=== PATIENT | male | born 1960 | race Caucasian/White ===

== ENCOUNTER → 2019-08-13 | Outpatient (CLI) | payer OTHER ==
[2019-08-13 09:09] LABS: CREATININE FOR GFR 1.56 MG/DL (0.70-1.30); GLOMERULAR FILTRATION RATE 49.1 (>56)
== END ==
LOC: M LAB 07:36
PROVIDERS: ATTEND Otolaryngology
DX: H83.02 Labyrinthitis, left ear (principal); H90.3 Sensorineural hearing loss, bilateral

== ENCOUNTER → 2019-08-17 | Outpatient (CLI) | payer OTHER ==
[~2019-08-17] MED LIST: PROHANCE 279.3MG/ML 5ML VIAL (A9576) As Ordered ONE
--- NOTE | 2019-08-17 13:04 | REP ---
MRI brain/IACs: 08/17/2019. Indication: Labyrinthitis. Left sided hearing loss. Comparison: None. Technique: Multiplanar short and long TR sequences of the brain/IACs were performed including gadolinium enhanced images. 10 ml of IV ProHance were administered. Findings: Image quality is degraded by patient motion. There are no areas of restricted diffusion or pathologic gadolinium enhancement. There is no intracranial mass effect or hydrocephalous. Age appropriate elevated T2 signal is noted within the periventricular white matter. Left-sided pansinusitis is present. There is mucosal thickening within the inferior right maxillary sinus. The large intracranial flow voids are present. There are no cerebellopontine/medullary angle or IACs abnormalities. The membranous labyrinth are unremarkable as well. Impression: Motion abandon study. No acute abnormalities of the brain or IACs. Paranasal sinus mucosal disease predominately on the left. Electronically Signed by Peewee Garcia DO 08/17/2019 12:56 P
== END ==
LOC: M RAD 10:09 → EDUNIT# 10:30
PROVIDERS: ATTEND Otolaryngology
DX: H83.02 Labyrinthitis, left ear (principal); H90.3 Sensorineural hearing loss, bilateral
CPT/HCPCS: 70553; A9576

== ENCOUNTER 2019-09-09 22:54 | Emergency (ER) | payer OTHER ==
[~2019-09-09] VITALS: Ht 182.9 cm; Wt 136.4 kg
[2019-09-09] MEDS ORDERED: PIOG1TAB55 PO (23:22)
[2019-09-09] MEDS ORDERED: CARV25TA PO (23:22)
[2019-09-09] MEDS ORDERED: TORS20TA2 PO (23:22)
[2019-09-09] MEDS ORDERED: LEVO175T2 PO (23:22)
[2019-09-09] MEDS ORDERED: CETI10CH PO (23:22)
[2019-09-09] MEDS ORDERED: FLUT50SP33 NARES (23:22)
[2019-09-09] MEDS ORDERED: RIZA10TA2 PO (23:22)
[2019-09-09] MEDS ORDERED: PENI500T PO (23:22)
[2019-09-09] MEDS ORDERED: METF10004 PO (23:22)
[2019-09-09] MEDS ORDERED: CLOP75TA2 PO (23:22)
[2019-09-09] MEDS ORDERED: LOSA100T50 PO (23:22)
[2019-09-09] MEDS ORDERED: ASPI81TA85 PO (23:22)
[2019-09-09] MEDS ORDERED: LANTINJ4 SC (23:22)
[2019-09-09] MEDS ORDERED: JANU100T PO (23:22)
[2019-09-09] MEDS ORDERED: GABA-1171 PO (23:22)
[2019-09-09] MEDS ORDERED: KLOR10TA76 PO (23:22)
[2019-09-09] MEDS ORDERED: PANT40TA3 PO (23:22)
[2019-09-09] MEDS ORDERED: IPRATROPIUM 0.5MG/ALBUTEROL 2.5MG INH SOL UD 3ML (DUONEB)(J7620) NEB ONE (23:30)
[2019-09-10 00:11] LABS: VENOUS BASE EXCESS -3.9 (-2.0-2.0); VENOUS O2 SATURATION 61.5 % (60.0-80.0); VENOUS PARTIAL PRESSURE CO2 49.2 mmHg (38.0-50.0); VENOUS PARTIAL PRESSURE O2 36.9 mmHg (30.0-50.0); VENOUS PH 7.288 UNITS (7.330-7.430); VENOUS STANDARD HCO3 20.5 MEQ/L; VENOUS TOTAL CO2 24.5 MEQ/L (24.0-28.0)
[2019-09-10 00:13] LABS: BASO # 0.1 10^3/uL (0.0-0.2); EOS # 0.5 10^3/uL (0.0-0.5); EOS % 10.4 % (0.0-3.0); HEMATOCRIT 29.3 % (42.0-52.0); HEMOGLOBIN 9.5 g/dl (13.5-17.5); LYMPH # 0.9 10^3/uL (1.5-5.0); LYMPH % 19.1 % (24.0-44.0); MEAN CORPUSCULAR HEMOGLOBIN 31.4 pg (27.0-33.0); MEAN CORPUSCULAR HGB CONC 32.4 g/dl (32.0-36.5); MEAN CORPUSCULAR VOLUME 96.7 fl (80.0-96.0); MONO # 0.3 10^3/uL (0.0-0.8); MONO % 5.3 % (0.0-5.0); NEUTROPHILS # 3.1 10^3/uL (1.5-8.5); NEUTROPHILS % 63.6 % (36.0-66.0); PLATELET COUNT, AUTOMATED 224 10^3/uL (150-450); RED BLOOD COUNT 3.03 10^6/uL (4.30-6.10); WHITE BLOOD COUNT 4.9 10^3/uL (4.0-10.0)
[2019-09-10 00:24] LABS: ALBUMIN 3.7 GM/DL (3.2-5.2); ALT/SGPT 32 U/L (12-78); BILIRUBIN,DIRECT 0.2 MG/DL (0.0-0.2); BILIRUBIN,TOTAL 0.5 MG/DL (0.2-1.0); CK-MB VALUE MASS 4.2 NG/ML (<3.6); CPK CREATINE PHOSPHOKINASE 587 U/L (39-308); MB/CK RELATIVE INDEX 0.72 (< OR =4); NT-PRO BNP 1367 PG/ML (<125); THYROXINE (T4) 8.6 UG/DL (4.5-12.0); TOTAL PROTEIN 7.1 GM/DL (6.4-8.2); TROPONIN I < 0.02 NG/ML (< 0.10)
[2019-09-10 00:31] LABS: INFLUENZA A AMPLIFICATION NEGATIVE (NEGATIVE); INFLUENZA B AMPLIFICATION NEGATIVE (NEGATIVE)
--- NOTE | 2019-09-10 01:18 | REP ---
Clinical: Cough and dyspnea. Comparison: None. Findings: Mediastinum and cardiac silhouette are within normal limits for portable technique. Increased coarsened markings suggests possible chronic reactive airway disease/bronchitis with minimal basilar atelectasis. No focal consolidation. No effusion. No pneumothorax. Skeletal structures intact. Impression: Cannot exclude bronchitis with minimal basilar atelectasis. Electronically Signed by Regan Escamilla MD 09/10/2019 01:10 A
[2019-09-10] MEDS ORDERED: POTASSIUM CHLORIDE 10 MEQ SR TABLET PO ONE (02:15)
[2019-09-10] MEDS ORDERED: CALCIUM CARBONATE 500 MG CHEW U/D PO ONE (02:15)
[2019-09-10] MEDS ORDERED: FUROSEMIDE 40 MG/4 ML VIAL (J1940) IV ONE (02:15)
[2019-09-10 03:02] VITALS: BP 186/77
--- NOTE | 2019-09-10 18:40 | ECGEPIP ---
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
== END 2019-09-10 03:09 | disposition home or self-care (01) ==
LOC: M ED 22:54
DX: I50.9 Heart failure, unspecified (principal); I11.0 Hypertensive heart disease with heart failure; E11.9 Type 2 diabetes mellitus without complications; E03.9 Hypothyroidism, unspecified; G47.33 Obstructive sleep apnea (adult) (pediatric); Z79.899 Other long term (current) drug therapy; Z79.82 Long term (current) use of aspirin; Z79.4 Long term (current) use of insulin; Z79.01 Long term (current) use of anticoagulants
CPT/HCPCS: 71045; 80047; 80076; 82550; 82553; 82803; 83605; 83880; 84436; 84443; 84484; 85025; 87040; 87502; 93005; 93041; 94640; 96374; 99291; J1940

== ENCOUNTER → 2019-12-07 | Outpatient (CLI) | payer OTHER ==
[~2019-12-07] MED LIST changes: +ASPI81TA85 PO; +CARV25TA PO; +CETI10CH PO; +CLOP75TA2 PO; +FLUT50SP33 NARES; +GABA-1171 PO; +JANU100T PO; +KLOR10TA76 PO; +LANTINJ4 SC; +LEVO175T2 PO; +LOSA100T50 PO; +METF10004 PO; +PANT40TA3 PO; +PENI500T PO; +PIOG1TAB55 PO; -PROHANCE 279.3MG/ML 5ML VIAL (A9576) As Ordered ONE; +RIZA10TA2 PO; +TORS20TA2 PO
--- NOTE | 2019-12-11 08:51 | SLEEPCENT ---
DATE OF STUDY: 12/07/2019 ORDERING PROVIDER: JOE Barragan Nocturnal polysomnography was performed for the titration of pressure therapy in this patient with a clinical diagnosis of obstructive sleep apnea syndrome supported by home testing revealing respiratory event index of 48.1. For testing, a ResMed Quattro full face mask of medium size was used. 5 cm of water pressure were applied to the circuit, and the lights were extinguished. 6 hours and 42 minutes of data were reviewed. There were 289 minutes of sleep identified. Sleep latency was normal at 10.5 minutes. Rapid eye movement (REM) latency was short at 24 minutes. Sleep architecture was good. There were a few periods of awake during the study. Overall sleep efficiency was 74.6%. The patient's electrocardiogram showed a sinus rhythm with an average heart rate of 80 beats per minute. Electroencephalogram (EEG) showed normal waveforms for awake and sleep. Respiratory events were fully palliated with continuous positive airway pressure (CPAP) at a pressure of +12. IMPRESSION: Obstructive sleep apnea syndrome (G47.33). RECOMMENDATION: Nightly use of pressure therapy, 12 cm of water.
== END ==
LOC: M SLEEP 20:00
PROVIDERS: ATTEND Nurse Practitioner Family
DX: G47.33 Obstructive sleep apnea (adult) (pediatric) (principal)

== ENCOUNTER 2020-07-30 19:16 | Inpatient (IN) | payer OTHER ==
[~2020-07-30] VITALS: Ht 182.9 cm; Wt 129.4 kg
[~2020-07-30 19:16] MED LIST changes: -ASPI81TA85 PO; +ASPI81TA86 PO; +PANT40TA29 PO; -PANT40TA3 PO
[2020-07-30] MEDS ORDERED: FUROSEMIDE 40MG/4ML VIAL (J1940) IV ONE (19:30)
[2020-07-30] MEDS ORDERED: INSU100I9 (20:02)
[2020-07-30] MEDS ORDERED: VICT18IN2 (20:02)
[2020-07-30] MEDS ORDERED: ISOS1TAB13 (20:02)
[2020-07-30] MEDS ORDERED: CULT10CA (20:02)
[2020-07-30] MEDS ORDERED: FAMO1TAB11 (20:02)
[2020-07-30] MEDS ORDERED: LEVO200T4 (20:02)
[2020-07-30] MEDS ORDERED: ROSU20TA5 (20:02)
[2020-07-30] MEDS ORDERED: DILT180C70 (20:02)
[2020-07-30] MEDS ORDERED: VANC125C3 (20:02)
[2020-07-30] MEDS ORDERED: D31000CA4 (20:02)
[2020-07-30 20:03] LABS: VENOUS BASE EXCESS -2.5 (-2.0-2.0); VENOUS HCO3 23.4 MEQ/L (23.0-27.0); VENOUS O2 SATURATION 91.3 % (60.0-80.0); VENOUS PARTIAL PRESSURE CO2 45.1 mmHg (38.0-50.0); VENOUS PARTIAL PRESSURE O2 65.9 mmHg (30.0-50.0); VENOUS PH 7.333 UNITS (7.330-7.430); VENOUS STANDARD HCO3 22.2 MEQ/L; VENOUS TOTAL CO2 24.8 MEQ/L (24.0-28.0)
[2020-07-30 20:21] LABS: BASO # 0.1 10^3/uL (0.0-0.2); BASO % 0.9 % (0.0-1.0); EOS # 0.6 10^3/uL (0.0-0.5); HEMATOCRIT 32.9 % (42.0-52.0); HEMOGLOBIN 10.9 g/dl (13.5-17.5); LYMPH % 12.3 % (24.0-44.0); MEAN CORPUSCULAR HGB CONC 33.1 g/dl (32.0-36.5); MEAN CORPUSCULAR VOLUME 93.5 fl (80.0-96.0); MONO # 0.5 10^3/uL (0.0-0.8); MONO % 5.5 % (0.0-5.0); NEUTROPHILS % 73.6 % (36.0-66.0); PLATELET COUNT, AUTOMATED 296 10^3/uL (150-450); RED BLOOD COUNT 3.52 10^6/uL (4.30-6.10); WHITE BLOOD COUNT 8.2 10^3/uL (4.0-10.0)
[2020-07-30 20:34] LABS: INR 0.91; PROTHROMBIN TIME 12.4 SECONDS (12.5-14.3)
[2020-07-30 20:44] LABS: ALBUMIN 2.9 GM/DL (3.2-5.2); BILIRUBIN,DIRECT 0.2 MG/DL (0.0-0.2); BILIRUBIN,TOTAL 0.6 MG/DL (0.2-1.0); CALCIUM LEVEL 8.7 MG/DL (8.5-10.1); CK-MB VALUE MASS 7.2 NG/ML (<3.6); CREATININE FOR GFR 1.82 MG/DL (0.70-1.30); GLOMERULAR FILTRATION RATE 40.9 (>56); MB/CK RELATIVE INDEX 0.96 (< OR =4); POTASSIUM SERUM 4.4 MEQ/L (3.5-5.1); TOTAL PROTEIN 6.7 GM/DL (6.4-8.2); TROPONIN I 0.02 NG/ML (< 0.10)
[2020-07-30] MEDS ORDERED: HumuLIN R (REGULAR) INSULIN (NovoLIN R) **100U/ML** PER UNIT IV ONE (21:15)
[2020-07-30] MEDS ORDERED: methylPREDNISolone 125MG 2ML VIAL IV STA (21:47)
--- NOTE | 2020-07-30 21:55 | HPEPDOC ---
[facility] Medical History & Physical Date of Admission Jul 30, 2020 Date of Service: Jul 30, 2020 Primary Care Physician: Jacey Alvares MD [facility] Attending Physician: RENITA AYOUB MD History and Physical TIME OF SERVICE: 11:50 PM CHIEF COMPLAINT: Shortness of breath HISTORY OF PRESENT ILLNESS: The patient is a poor historian the majority of the history was obtained from . This 60 yr old gentleman suddenly developed shortness of breath while shopping with his , therefore, she decided to bring him to the hospital for evaluation. Upon arrival, the patient added that he also had chest pain and was noted to have O2 sats that were 88% on room air. Per Dr. Woo the patient's torsemide, had recently been discontinued; in light of this information and the elevated BNP, he ordered Lasix and started the patient on BiPAP for cardiogenic pulmonary edema. At the time of my evaluation, the patient reported that his shortness of breath that improved with BIPAP, and added that he was currently on medications for C. difficile and had recently completed a course of antibiotics for pneumonia. REVIEW OF SYSTEMS: 12 point review of systems negative except as listed in HPI PAST MEDICAL/ SURGICAL HISTORY: COPD/asthma Unspecified type of CHF CAD with placement of 3 stents CKD 3 AMARJIT on CPAP 12 cm water Diabetes GERD Hypothyroidism Dementia Impaired hearing. Chronic knee pain SOCIAL HISTORY: Is a former smoker FAMILY HISTORY: n/a ALLERGIES: Please see below. HOME MEDICATIONS: Please see below. PHYSICAL EXAMINATION: Vital Signs Date Time Temp Pulse Resp B/P (MAP) Pulse Ox O2 Delivery O2 Flow Rate FiO2 07/30/20 19:16 98.2 98 223/100 (141) 89 Room Air 07/30/20 19:30 4.0 88 07/31/20 01:55 18 GEN: obese/ well developed/ NAD HEENT: BIPAP mask in place CVS: RRR/NMRG/ radial pulses intact / BLE edema LUNGS: able to speak full sentences without stopping to take a breath / breath sounds are diminished ABDOMEN: Contour ( obese ) MSK/EXTREMITIES: range of motion intact in all 4 extremities NEURO: CN 2-12 are grossly intact / speech is not dysarthric PSYCH: alert and oriented to person place and time/ able to understand and follow all commands LABORATORY DATA: 07/30/20 19:16 12/16/20 19:16: Immature Granulocyte % (Auto) 0.7, Neutrophils (%) (Auto) 73.6H, Lymphocytes (%) (Auto) 12.3L, Monocytes (%) (Auto) 5.5H, Eosinophils (%) (Auto) 7.0H, Basophils (%) (Auto) 0.9, Neutrophils # (Auto) 6.0, Lymphocytes # (Auto) 1.0L, Monocytes # (Auto) 0.5, Eosinophils # (Auto) 0.6H, Basophils # (Auto) 0.1, Nucleated Red Blood Cells % (auto) 0.0, Prothrombin Time 12.4, Prothromb Time International Ratio 0.91, Blood Gas Bicarbonate Standard 22.2, Venous Blood pH 7.333, Venous Blood Partial Pressure CO2 45.1, Venous Blood Partial Pressure O2 65.9H, Venous Blood Total Carbon Dioxide 24.8, Venous Blood HCO3 23.4, Venous Blood Oxygen Saturation 91.3H, Venous Blood Base Excess -2.5L, Anion Gap 7L, Glomerular Filtration Rate 40.9L, Calcium Level 8.7, Total Bilirubin 0.6, Direct Bilirubin 0.2, Aspartate Amino Transf (AST/SGOT) 26, Alanine Aminotransferase (ALT/SGPT) 20, Alkaline Phosphatase 102, Total Creatine Kinase 749H, Creatine Kinase MB 7.2H, Creatine Kinase MB Relative Index 0.96, Troponin I 0.02, FL-Duu-A-Type Natriuretic Peptide 2416H, Total Protein 6.7, Albumin 2.9L, Albumin/Globulin Ratio 0.8 07/30/20 21:47: Bedside Glucose (Misc Panel) 452H IMAGING: Chest xray "IMPRESSION:Stable cardiomegaly, chronic vascular congestion and increased interstitial markings." MICROBIOLOGY: Please see below. ASSESSMENT: Mr. Kingsley is a 60 yr old M with a history of COPD/asthma, unspecified, CHF, CAD, CK D3, AMARJIT, DM, GERD, hypothyroidism, dementia, and impaired hearing who will be admitted for evaluation of dyspnea likely due to fluid overload. PLAN: 1. Dyspnea Likely due to acute CHF His initial O2 sats were 88% on room air. The chest x-ray showed chronic vascular congestion while the ABG and troponin were unremarkable. Because he was recently hospitalized and the dyspnea was sudden in onset we should also r/o PE; the Wells Score for PE = 1 point = low risk Plan: admit to PCU / treat fluid overload / check d-dimer 2. Acute unspecified type of CHF Plan: f/u Is and Os, daily weights/ restrict salt to 2G and fluids to 2L / c/w Lasix 40mg IV daily / f/u Echo / c/w carvediolol, hydralazine, isosorbid dinitrate & losartan 3. Mild Acute COPD/Asthma Plan: will give solumedrol and nebs tonight and resume home inhalers in the morning 4. Chest pain Plan: telemetry / trend trops 5. C diff Plan: contact precautions / c/w Vancomycin 6. Uncontrolled IDDM Plan: will give lispro now / diabetic diet / f/u accuchecks & A1C / hypoglycemia protocol / sliding scale insulin / Levemir 35 units QHS/ gabapentin 7. Uncontrolled HTN Plan: resume carvedilol, diltiazem, hydralazine, isosorbide dinitrate, losartan / IV Lasix 8.CAD Plan: clopidogrel, rosuvastatin 9. NN Anemia Plan: c/w oral iron 10. Elevated CK / Rhabdo ? Plan: trend CK / will not give IVF to avoid worsening fluid overload 11. 7.CKD3 Cr slightly above baseline Plan: f/u repeat BMP 12 .Hypothyroidism Plan: levothyroxine 13. AMARJIT Plan: CPAP 12cm H2O 14. Obesity w BMI of 36.7 complicates care DVT PROPHYLAXIS: heparin DISPOSITION: home after more than 2 midnight's stay LATE ENTRY # Elevated d-dimer Plan: start Heparin drip pending VQ Scan Home Medications Scheduled Aspirin (Aspirin EC) 81 Mg Tablet.dr, 81 MG PO DAILY Carvedilol (Carvedilol) 25 Mg Tablet, 25 MG PO BID Cholestyramine/Aspartame (Cholestyramine Light Packet) 4 Gm Powd.pack, 4 GM PO DAILY Clopidogrel Bisulfate (Clopidogrel) 75 Mg Tablet, 75 MG PO DAILY Famotidine (Famotidine) 20 Mg Tablet, 20 MG PO DAILY Ferrous Gluconate (Iron) 236 Mg Tablet, 2 TAB PO DAILY Fluticasone Propionate (Fluticasone Propionate) 15.8 Ml [place].susp, 2 SPRAYS NA DAILY Gabapentin (Gabapentin) 100 Mg Capsule, 200 MG PO TID Hydralazine HCl (Hydralazine HCl) 25 Mg Tablet, 25 MG PO DAILY Hydrocortisone (Anusol-Hc) 2.5% Crm.pe.jana, 1 DOSE PA BID Insulin Glargine,Hum.rec.anlog (Lantus Solostar) 100 Unit/1 Ml Insuln.pen, 35 UNITS SC QHS Isosorbide Dinitrate (Isosorbide Dinitrate) 30 Mg Tablet, 30 MG PO DAILY Lactobacillus Rhamnosus GG (PROFICIO) 1 Each Cap.sprink, 1 CAP PO DAILY Levothyroxine Sodium (Synthroid) 200 Mcg Tablet, 200 MCG PO DAILY Liraglutide (Victoza 2-Fred) 0.6 Mg/0.1 Ml Pen.injctr, 1.8 MG SC DAILY Losartan Potassium (Losartan Potassium) 100 Mg Tablet, 100 MG PO DAILY Potassium Chloride (Potassium Chloride) 10 Meq Tab.er.prt, 10 MEQ PO DAILY Rosuvastatin Calcium (Crestor) 20 Mg Tablet, 20 MG PO QHS Vancomycin Hcl (Vancomycin HCl) 125 Mg Capsule, 125 MG PO Q6H dilTIAZem HCl (Diltiazem 24Hr Cd) 180 Mg Cap.er.24h, 180 MG PO DAILY Scheduled PRN Albuterol Sulfate (Proair Hfa) 8.5 Gm Hfa.aer.ad, 2 PUFF INH QID PRN for SHORTNESS OF BREATH Cetirizine HCl (Cetirizine HCl) 10 Mg Tablet, 10 MG PO DAILY PRN for ALLERGY SYMPTOMS Rizatriptan Benzoate (Maxalt Mold Swabber) 10 Mg Tab.rapdis, 10 MG PO BID PRN for MIGRAINE Allergies Coded Allergies: dulaglutide (Verified Adverse Reaction, Unknown, DIARRHEA, 07/30/20) A-FIB/CHADSVASC A-FIB History Current/History of A-Fib/PAF?: No Current PO Anticoag Therapy: No RENITA AYOUB MD Jul 30, 2020 21:55
[2020-07-30] MEDS ORDERED: GLUCAGON INJ 1MG VIAL SC PRN (22:00)
[2020-07-30] MEDS ORDERED: DEXTROSE 50% 50 ML SYRINGE IV PRN (22:00)
[2020-07-30] MEDS ORDERED: GLUCOSE 4GM CHEW TABLET PO PRN (22:00)
[2020-07-30] MEDS ORDERED: MOM 30ML SUSPENSION UDC PO PRN (22:00)
[2020-07-30] MEDS ORDERED: MAALOX 30 ML SUSP *UDC PO PRN (22:00)
[2020-07-30] MEDS ORDERED: ALBUTEROL 90 MCG/ACT 8GM HFA INHALER INH PRN (22:00)
[2020-07-30 22:09] LABS: D-DIMER QUANT 1436.56 ng/ml (<500)
[2020-07-30 22:25] LABS: HEMOGLOBIN A1c 13.2 %
[2020-07-30 22:35] LABS: RSV AMPLIFICATION NEGATIVE (NEGATIVE)
--- NOTE | 2020-07-30 23:07 | REPVR ---
PROCEDURE INFORMATION: Exam: XR Chest, 1 View Exam date and time: 07/30/2020 7:27 PM Age: 60 years old Clinical indication: Other: Dyspnea; Additional info: Dyspnea/cough TECHNIQUE: Imaging protocol: XR of the chest Views: 1 view. COMPARISON: CR PORTABLE CHEST X-RAY 09/09/2019 11:21 PM FINDINGS: Lungs: Unremarkable. No consolidation. Pleural space: Unremarkable. No pleural effusion. No pneumothorax. Heart/Mediastinum: Unremarkable. No cardiomegaly. Bones/joints: Unremarkable. IMPRESSION: No acute infiltrates. Electronically signed by: Nathaniel Pedroza On 07/30/2020 23:07:28 PM
[2020-07-30] MEDS ORDERED: ANUS2.5C2 PR (23:52)
[2020-07-30] MEDS ORDERED: CLOP75TA2 PO (23:52)
[2020-07-30] MEDS ORDERED: ISOS30TAB PO (23:52)
[2020-07-30] MEDS ORDERED: PROAAER10 INH (23:52)
[2020-07-30] MEDS ORDERED: VANC125C3 PO (23:52)
[2020-07-30] MEDS ORDERED: CETI10TA PO (23:52)
[2020-07-30] MEDS ORDERED: CULT10CA PO (23:52)
[2020-07-30] MEDS ORDERED: MAXA10TA15 PO (23:52)
[2020-07-30] MEDS ORDERED: LANTINJ4 SC (23:52)
[2020-07-30] MEDS ORDERED: CRES20TA2 PO (23:52)
[2020-07-30] MEDS ORDERED: FAMO20TA PO (23:52)
[2020-07-30] MEDS ORDERED: LEVO2TA PO (23:52)
[2020-07-30] MEDS ORDERED: POTA10TA67 PO (23:52)
[2020-07-30] MEDS ORDERED: IRON27TA2 PO (23:52)
[2020-07-30] MEDS ORDERED: GABA-1171 PO (23:52)
[2020-07-30] MEDS ORDERED: HYDR-3910 PO (23:52)
[2020-07-30] MEDS ORDERED: LOSA100T50 PO (23:52)
[2020-07-30] MEDS ORDERED: VICT18IN SC (23:52)
[2020-07-30] MEDS ORDERED: DILT180C70 PO (23:52)
[2020-07-30] MEDS ORDERED: ASPI-161 PO (23:52)
[2020-07-30] MEDS ORDERED: FLUT15.820 (23:52)
[2020-07-30] MEDS ORDERED: CARV25TA PO (23:52)
[2020-07-30] MEDS ORDERED: CHOL4POW2 PO (23:52)
[2020-07-31] VITALS (10 sets, daily range): BP systolic 130–170; BP diastolic 70–90; O2SAT 96–100
[2020-07-31] MEDS: HumaLOG INSULIN (NovoLOG) PER UNIT SC SCH ×4 (00:41→17:48)
[2020-07-31] MEDS ORDERED: IPRATROPIUM 0.5MG/ALBUTEROL 2.5MG INH SOL UD 3ML (DUONEB) NEB SCH (02:00)
[2020-07-31] MEDS ORDERED: HEPARIN DRIP 25,000 UNITS in IV 1 EA IV SCH (05:30)
[2020-07-31] MEDS ORDERED: HEPARIN SOD (PORCINE) 5000UNITS/ML 1ML VIAL/SYRINGE IV ONE (05:30)
[2020-07-31] MEDS ORDERED: HEPARIN SOD (PORCINE) 5000UNITS/ML 1ML VIAL/SYRINGE IV PRN (05:30)
[2020-07-31] MEDS ORDERED: RIZATRIPTAN MLT 10 MG TAB PO PRN (05:30)
[2020-07-31] MEDS ORDERED: HumaLOG INSULIN (NovoLOG) PER UNIT SC ONE ×2 (05:30→20:45)
[2020-07-31] MEDS ORDERED: ALBUTEROL 90 MCG/ACT 8GM HFA INHALER INH PRN (05:30)
[2020-07-31] MEDS ORDERED: HEPARIN SOD (PORCINE) 5000UNITS/ML 1ML VIAL/SYRINGE SC SCH (06:00)
[2020-07-31 06:03] LABS: HEMATOCRIT 31.1 % (42.0-52.0); MEAN CORPUSCULAR HEMOGLOBIN 30.1 pg (27.0-33.0); MEAN CORPUSCULAR HGB CONC 32.2 g/dl (32.0-36.5); MEAN CORPUSCULAR VOLUME 93.7 fl (80.0-96.0); PLATELET COUNT, AUTOMATED 263 10^3/uL (150-450); RED BLOOD COUNT 3.32 10^6/uL (4.30-6.10); WHITE BLOOD COUNT 7.7 10^3/uL (4.0-10.0)
[2020-07-31] MEDS: LEVEMIR (INSULIN DETEMIR) 1 UNITS/0.01ML SC SCH ×2 (06:07→20:56)
[2020-07-31] MEDS: ACETAMINOPHEN TAB 650MG DOSE (2X325MG) PO PRN (06:09)
[2020-07-31] MEDS: LEVOTHYROXINE 100MCG TABLET (0.1MG) PO SCH (06:27)
[2020-07-31] MEDS: ROSUVASTATIN 10 MG TAB (CRESTOR) PO SCH ×2 (06:27→20:56)
[2020-07-31 06:45] LABS: BLOOD UREA NITROGEN 22 MG/DL (7-18); CARBON DIOXIDE LEVEL 27 MEQ/L (21-32); CHLORIDE LEVEL 105 MEQ/L (98-107); CPK CREATINE PHOSPHOKINASE 611 U/L (39-308); CREATININE FOR GFR 1.86 MG/DL (0.70-1.30); GLOMERULAR FILTRATION RATE 39.9 (>56); GLUCOSE, FASTING 397 MG/DL (70-100); SODIUM LEVEL 138 MEQ/L (136-145); TROPONIN I < 0.02 NG/ML (< 0.10)
[2020-07-31] MEDS: VANCOMYCIN ORAL SOL 250MG/5ML ORAL SYRINGE PO SCH ×3 (06:47→17:49)
[2020-07-31] MEDS ORDERED: predniSONE 20 MG TAB PO SCH (09:00)
[2020-07-31] MEDS ORDERED: LEVEMIR (INSULIN DETEMIR) 1 UNITS/0.01ML SC SCH (09:00)
[2020-07-31] MEDS ORDERED: LOSARTAN 50MG TABLET PO SCH (09:00)
[2020-07-31] MEDS ORDERED: FUROSEMIDE 40MG/4ML VIAL (J1940) IV SCH (09:00)
[2020-07-31] MEDS: CARVedilol 12.5 MG TAB PO SCH ×2 (09:11→20:58)
[2020-07-31] MEDS: CLOPIDOGREL 75 MG TAB PO SCH (09:12)
[2020-07-31] MEDS: ISOSORBIDE DIN. (ISORDIL) 30 MG TAB PO SCH (09:12)
[2020-07-31] MEDS: FAMOTIDINE 20 MG TAB PO SCH (09:12)
[2020-07-31] MEDS: ASPIRIN 81 MG ENTERIC TAB PO SCH (09:12)
[2020-07-31] MEDS: PANTOPRAZOLE 40MG TAB (PROTONIX) PO SCH (09:12)
[2020-07-31] MEDS: GABAPENTIN 100 MG CAP PO SCH ×3 (09:12→20:57)
[2020-07-31] MEDS: POTASSIUM CHLORIDE 10 MEQ SR TABLET PO SCH (09:13)
[2020-07-31] MEDS: diltiaZEM **CD** 180 MG CAP PO SCH (09:13)
[2020-07-31] MEDS: **hydrALAZINE HCL** 25 MG TAB PO SCH (09:13)
--- NOTE | 2020-07-31 13:04 | REP ---
INDICATION: dyspnea elevated d-dimer. COMPARISON: Comparison is made with the previous day's portable chest x-ray.. TECHNIQUE: 1.0 mCi of technetium 99m DTPA aerosol is utilized for the ventilation study and is followed by a 5.5 mCi dose of intravenous technetium 99m MAA for the perfusion study. A sequence of 8 planar images are acquired for each portion of the study. FINDINGS: There is a mild central bronchial deposition of inspired ventilatory tracer. There is fairly homogeneous distribution of perfusion and ventilation uptake in the parenchyma. No ventilation perfusion mismatch is seen in either lung. IMPRESSION: Negative perfusion scan. No evidence of pulmonary embolus. <Electronically signed by Darnell Bradley > 07/31/20 1300
[2020-07-31] MEDS: CHOLESTYRAMINE 4 GM PWD PKT PO SCH (13:33)
--- NOTE | 2020-07-31 13:33 | ECGEPIP ---
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
[2020-07-31 13:54] LABS: INR 1.01; PROTHROMBIN TIME 13.5 SECONDS (12.5-14.3)
[2020-07-31 14:10] LABS: PARTIAL THROMBOPLASTIN TIME 141.4 SECONDS (24.2-38.5)
--- NOTE | 2020-07-31 14:13 | IPNPDOC ---
Date Seen The patient was seen on 07/31/20. Progress Note SUBJECTIVE: V/Q scan neg, doppler LE pending. Heparin gtt stopped for now, started on heparin SC. Given 35 U levemir at 6 AM, normally takes at HS so will watch carefully for hypoglycemia. OBJECTIVE PEN: obese/ well developed/ NAD HEENT: AT/NC, PERRLA, EOM intact, NC in place NECK: No JVD, Large diameter CVS: RRR/NMRG/ radial pulses intact / BLE edema LUNGS: able to speak full sentences without stopping to take a breath / Diminished breath sounds bilaterally ABDOMEN: Contour ( obese ) , BS + in 4 quadrant, soft, nontender MSK/EXTREMITIES: range of motion intact in all 4 extremities NEURO: CN 2-12 are grossly intact / speech is not dysarthric/ alert and oriented to person place and time/ able to understand and follow all commands PSYCH: mood and affect appropriate LABORATORY DATA: Please see below MICROBIOLOGY: IMAGING: Echocardiogram 07/31/20: pending Doppler LE b/l: pending Chest xray: Stable cardiomegaly, chronic vascular congestion and increased interstitial markings." MICROBIOLOGY: Please see below. ASSESSMENT: Mr. Kingsley is a 60 yr old M with a history of COPD/asthma, unspecified, CHF, CAD, CK D3, AMARJIT, DM, GERD, hypothyroidism, dementia, and impaired hearing who will be admitted for evaluation of dyspnea likely due to fluid overload. PLAN: Acute hypoxic respiratory failure [facility] 2/2 to acute CHF exacerbation (type unknown), mild COPD exacerbation -Currently 99% on 4 L NC, not on home O2 normally. Will attempt to wean down/off slowly -Diminished breath sounds b/l, no wheezing, rhonchi -BNP 2416, trops neg -Neg fluid balance since admission -V/Q scan neg for PE -CXR: chronic vascular congestion -On lasix 40 mg IV daily, will increased to 60 mg IV daily -Holding losartan with MOHAMUD -C/w carvediolol, hydralazine, isosorbid dinitrate, prednisone, albuterol QID, albuterol PRN. Adding IS -Monitor I&O's closely, daily wt, fluid restriction, low salt diet -F/u echocardiogram Acute unspecified type of CHF with exacerbation -Please see plan above Mild acute COPD/Asthma exacerbation -Diminished breath sounds, minimal exp wheezing -Please see plan above Elevated d dimer -V/Q ruled out PE -F/u lower ext doppler to r/o DVT -D/nigel heparin gtt, started on heparin SC for prophylaxis. If + for DVT, start on lovenox renally dosed therapeutically Uncontrolled IDDM -BS elevated 380-479 -hbA1c high at 13.2 with average blood sugar over three months being 350-380 -Either patient is noncompliant or difficult to control and not being treated aggressively enough -Given 35 U levemir this AM, which patient is tolerating well. Monitor for s/s of hypoglycemia over the day. He will likely need a daily and nightly dose of levemir at discharge. -To receive another 35 U HS this evening (home dose) -C/w consistent carb diet, , AC/HS blood sugar checks and ISS, hypoglycemic protocol Uncontrolled HTN -BP systolic 160-170 mmHg -C/w carvedilol, diltiazem, hydralazine, isosorbide dinitrate, IV Lasix -Holding losartan with MOHAMUD Peripheral neuropathy 2/2 to uncontrolled DM -C/w gabapentin Hx of C diff -States to have gotten after use of abx -Followed by his primary care provider, not infectious disease -C/w Vancomycin PO (on a 6 week dosing regimen), adding probiotic -C/w contact precautions MOHAMUD ? 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 -Not worsened, improving -Will not give IVF to avoid worsening fluid overload Hypothyroidism -C/w levothyroxine AMARJIT -CPAP Obesity w BMI of 36.7 -complicates care DVT Px -heparin gtt stopped, started on heparin SC Resolved issues: Atypical chest pain poss 2/2 to issues above with incr work of breathing on admission DISPOSITION: C/w treatment above. Will need PT/OT. Plan is discharge home when medically improved. VS, I&O, 24H, Fishbone Vital Signs/I&O Vital Signs Date Time Temp Pulse Resp B/P (MAP) Pulse Ox O2 Delivery O2 Flow Rate FiO2 07/31/20 12:00 98.5 78 20 168/70 (102) 97 Nasal Cannula 2.0 07/30/20 19:50 40 I&O- Last 24 Hours up to 6 AM 07/31/20 06:00 Output Total 3200 ml Balance -3200 ml Laboratory Data 24H LABS Laboratory Tests 2 07/30/20 18:55: Coronavirus (COVID-19)(PCR) NEGATIVE, Influenza Type A (RT-PCR) NEGATIVE, Influenza Type B (RT-PCR) NEGATIVE, Respiratory Syncytial Virus (PCR) NEGATIVE 07/30/20 19:16: Immature Granulocyte % (Auto) 0.7, Neutrophils (%) (Auto) 73.6H, Lymphocytes (%) (Auto) 12.3L, Monocytes (%) (Auto) 5.5H, Eosinophils (%) (Auto) 7.0H, Basophils (%) (Auto) 0.9, Neutrophils # (Auto) 6.0, Lymphocytes # (Auto) 1.0L, Monocytes # (Auto) 0.5, Eosinophils # (Auto) 0.6H, Basophils # (Auto) 0.1, Nucleated Red Blood Cells % (auto) 0.0, Prothrombin Time 12.4, Prothromb Time International Ratio 0.91, D-Dimer, Quantitative 1436.56H, Blood Gas Bicarbonate Standard 22.2, Venous Blood pH 7.333, Venous Blood Partial Pressure CO2 45.1, Venous Blood Partial Pressure O2 65.9H, Venous Blood Total Carbon Dioxide 24.8, Venous Blood HCO3 23.4, Venous Blood Oxygen Saturation 91.3H, Venous Blood Base Excess -2.5L, Anion Gap 7L, Glomerular Filtration Rate 40.9L, Estimated Mean Plasma Glucose 332H, Hemoglobin A1c 13.2, Osmolality 307H, Calcium Level 8.7, Total Bilirubin 0.6, Direct Bilirubin 0.2, Aspartate Amino Transf (AST/SGOT) 26, Alanine Aminotransferase (ALT/SGPT) 20, Alkaline Phosphatase 102, Total Creatine Kinase 749H, Creatine Kinase MB 7.2H, Creatine Kinase MB Relative Index 0.96, Troponin I 0.02, JN-Znc-P-Type Natriuretic Peptide 2416H, Total Protein 6.7, Albumin 2.9L, Albumin/Globulin Ratio 0.8 07/30/20 21:47: Bedside Glucose (Misc Panel) 452H 07/30/20 23:05: Bedside Glucose (Misc Panel) 449H 07/31/20 00:34: Troponin I 0.03# 07/31/20 00:37: Bedside Glucose (Misc Panel) 479H 07/31/20 03:12: Bedside Glucose (Misc Panel) 403H 07/31/20 05:36: Troponin I < 0.02#, Nucleated Red Blood Cells % (auto) 0.0, Anion Gap 6L, Glomerular Filtration Rate 39.9L, Calcium Level 9.0, Magnesium Level 2.0, Total Creatine Kinase 611H 07/31/20 05:57: Bedside Glucose (Misc Panel) 380H 07/31/20 11:40: Bedside Glucose (Misc Panel) 425H 07/31/20 13:29: CBC/BMP Laboratory Tests 07/30/20 19:16 07/31/20 05:36 Current Medications Current Medications Medications (Trade) Dose Ordered Sig/Justus Route PRN Reason Start Time Stop Time Status Last Admin Dose Admin Acetaminophen (Tylenol Tab) 650 mg Q4H PRN PO PAIN OR FEVER 07/30/20 22:00 07/31/20 06:09 Al Hydrox/Mg Hydrox/Simethicone (Mylanta) 30 ml DAILY PRN PO DYSPEPSIA 07/30/20 22:00 Albuterol Sulfate (Proventil, Ventolin Hfa) 2 puff QID PRN INH SHORTNESS OF BREATH 07/31/20 05:30 Albuterol Sulfate (Proventil, Ventolin Hfa) 4 puff Q1HP PRN INH SHORTNESS OF BREATH 07/30/20 22:00 07/31/20 05:29 DC Albuterol/ Ipratropium (Duoneb (Ipr 0.5mg/Alb 2.5mg)) 3 ml RQ6H NEB 07/31/20 02:00 07/31/20 05:29 DC 07/31/20 01:59 Aspirin (Ecotrin) 81 mg DAILY PO 07/31/20 09:00 07/31/20 09:12 Carvedilol (COReg) 25 mg BID PO 07/31/20 09:00 07/31/20 09:11 Cholestyramine Resin (Questran) 4 gm DAILY PO 07/31/20 09:00 07/31/20 13:33 Clopidogrel Bisulfate (PLAVix) 75 mg DAILY PO 07/31/20 09:00 07/31/20 09:12 Dextrose (Dextrose 50%) 25 ml ASDIRECTED PRN IV SEE LABEL COMMENTS 07/30/20 22:00 Diltiazem HCl (Cardizem Cd) 180 mg DAILY PO 07/31/20 09:00 07/31/20 09:13 Famotidine (Pepcid) 20 mg DAILY PO 07/31/20 09:00 07/31/20 09:12 Furosemide (LASIX injection) 40 mg DAILY IV 07/31/20 09:00 07/31/20 09:11 Gabapentin (Neurontin) 200 mg TID PO 07/31/20 09:00 07/31/20 09:12 Glucagon (Glucagon) 1 mg ASDIRECTED PRN SC SEE LABEL COMMENTS 07/30/20 22:00 Glucose (Glucose) 16 GM ASDIRECTED PRN PO SEE LABEL COMMENTS 07/30/20 22:00 Heparin Sodium (Porcine) (Heparin) ASDIRECTED PRN IV SEE LABEL COMMENTS 07/31/20 05:30 Heparin Sodium (Porcine) (Heparin) 5,000 units Q8H SC 07/31/20 06:00 07/31/20 05:33 DC Heparin Sodium (Porcine) 06138 units/IV Miscellaneous Supplies 250 ml @ 0 mls/hr Q0M IV 07/31/20 05:30 07/31/20 06:28 Home Med (Med Rec Complete!) ASDIRECTED XX 07/31/20 00:00 07/30/20 23:54 DC Hydralazine HCl (Apresoline) 25 mg DAILY PO 07/31/20 09:00 07/31/20 09:13 Hydrocortisone (Proctosol Hc) apply to rectal area BID OH 07/31/20 09:00 Insulin Detemir (Levemir Insulin) 8 units QAM SC 07/31/20 09:00 07/31/20 09:02 DC Insulin Detemir (Levemir Insulin) 35 units QHS SC 07/30/20 21:00 07/31/20 06:07 Insulin Human Lispro (HumaLOG INSULIN) See Protocol Table Q6H SC 07/31/20 00:00 07/31/20 13:33 Isosorbide Dinitrate (Isordil) 30 mg DAILY PO 07/31/20 09:00 07/31/20 09:12 Levothyroxine Sodium (Synthroid) 200 mcg DAILY@0600 PO 07/31/20 06:00 07/31/20 06:27 Losartan Potassium (Cozaar) 100 mg DAILY PO 07/31/20 09:00 07/31/20 07:31 DC Magnesium Hydroxide (Milk Of Magnesia) 30 ml DAILY PRN PO CONSTIPATION 07/30/20 22:00 Methylprednisolone (SOLUmedrol) 125 mg STAT STAT IV 07/30/20 21:47 07/30/20 21:55 DC 07/30/20 23:03 Non-Formulary Medication (Heparin Iv Rate Change Documentation ml/ Hr) ASDIRECTED XX 07/31/20 05:30 08/05/20 05:29 Pantoprazole Sodium (Protonix) 40 mg DAILY PO 07/31/20 09:00 07/31/20 09:12 Potassium Chloride (Micro-K Extencaps) 10 meq DAILY PO 07/31/20 09:00 07/31/20 09:13 Prednisone (Deltasone) 40 mg DAILY PO 07/31/20 09:00 07/31/20 09:12 Rizatriptan Benzoate (Maxalt-Manager Fitness) 10 mg BID PRN PO MIGRAINE 07/31/20 05:30 Rosuvastatin Calcium (Crestor) 20 mg QHS PO 07/30/20 21:00 07/31/20 06:27 Vancomycin HCl (First-Vancomycin 50(Firvanq)- 250mg/5ml) 125 mg Q6H PO 07/31/20 06:00 07/31/20 13:32 Allergies Coded Allergies: dulaglutide (Verified Adverse Reaction, Unknown, DIARRHEA, 07/30/20) Sharmila Campbell MD Jul 31, 2020 14:13
[2020-07-31] MEDS: ANUSOL HC CREAM 30GM PR SCH ×2 (15:20→20:58)
--- NOTE | 2020-07-31 15:25 | REP ---
INDICATION: r/o DVT COMPARISON: None. FINDINGS: The deep veins demonstrate normal compression, normal Doppler color flow and normal Doppler waveforms with respiration augmentation from the popliteal veins to the common femoral veins bilaterally. IMPRESSION: There is no deep vein thrombus in the right or left lower extremities. <Electronically signed by Gio Ochoa > 07/31/20 1523
[2020-07-31] MEDS: HEPARIN SOD (PORCINE) 5000UNITS/ML 1ML VIAL/SYRINGE SQ SCH ×2 (16:40→21:59)
[2020-07-31] MEDS: LACTOBACILLUS ACIDOPHILUS CAP (BACID) PO SCH (17:49)
[2020-08-01] VITALS (7 sets, daily range): BP systolic 110–164; BP diastolic 70–90; O2SAT 98
[2020-08-01] MEDS: VANCOMYCIN ORAL SOL 250MG/5ML ORAL SYRINGE PO SCH ×4 (00:53→17:57)
[2020-08-01] MEDS: HumaLOG INSULIN (NovoLOG) PER UNIT SC SCH ×4 (00:54→17:57)
[2020-08-01] MEDS: ACETAMINOPHEN TAB 650MG DOSE (2X325MG) PO PRN (01:02)
[2020-08-01 06:06] LABS: HEMATOCRIT 27.1 % (42.0-52.0); HEMOGLOBIN 8.9 g/dl (13.5-17.5); MEAN CORPUSCULAR HEMOGLOBIN 30.8 pg (27.0-33.0); MEAN CORPUSCULAR HGB CONC 32.8 g/dl (32.0-36.5); MEAN CORPUSCULAR VOLUME 93.8 fl (80.0-96.0); PLATELET COUNT, AUTOMATED 251 10^3/uL (150-450); RED BLOOD COUNT 2.89 10^6/uL (4.30-6.10); WHITE BLOOD COUNT 14.2 10^3/uL (4.0-10.0)
[2020-08-01] MEDS: LEVOTHYROXINE 100MCG TABLET (0.1MG) PO SCH (06:29)
[2020-08-01] MEDS: HEPARIN SOD (PORCINE) 5000UNITS/ML 1ML VIAL/SYRINGE SQ SCH ×3 (06:30→21:35)
[2020-08-01 06:34] LABS: ALBUMIN 2.5 GM/DL (3.2-5.2); BILIRUBIN,TOTAL 0.3 MG/DL (0.2-1.0); CALCIUM LEVEL 8.5 MG/DL (8.5-10.1); CREATININE FOR GFR 2.22 MG/DL (0.70-1.30); GLOMERULAR FILTRATION RATE 32.5 (>56); POTASSIUM SERUM 3.9 MEQ/L (3.5-5.1); TOTAL PROTEIN 5.7 GM/DL (6.4-8.2)
[2020-08-01] MEDS: ANUSOL HC CREAM 30GM PR SCH ×2 (09:00→21:33)
[2020-08-01] MEDS: ASPIRIN 81 MG ENTERIC TAB PO SCH (09:25)
[2020-08-01] MEDS: LACTOBACILLUS ACIDOPHILUS CAP (BACID) PO SCH ×2 (09:25→17:57)
[2020-08-01] MEDS: GABAPENTIN 100 MG CAP PO SCH ×3 (09:25→21:35)
[2020-08-01] MEDS: FAMOTIDINE 20 MG TAB PO SCH (09:25)
[2020-08-01] MEDS: PANTOPRAZOLE 40MG TAB (PROTONIX) PO SCH (09:25)
[2020-08-01] MEDS: FUROSEMIDE 20MG/2ML VIAL (J1940) IV SCH (09:26)
[2020-08-01] MEDS: **hydrALAZINE HCL** 25 MG TAB PO SCH (09:27)
[2020-08-01] MEDS: CLOPIDOGREL 75 MG TAB PO SCH (09:27)
[2020-08-01] MEDS: ISOSORBIDE DIN. (ISORDIL) 30 MG TAB PO SCH (09:27)
[2020-08-01] MEDS: POTASSIUM CHLORIDE 10 MEQ SR TABLET PO SCH (09:27)
[2020-08-01] MEDS: diltiaZEM **CD** 180 MG CAP PO SCH (09:27)
[2020-08-01] MEDS: CARVedilol 12.5 MG TAB PO SCH ×2 (09:27→21:36)
[2020-08-01] MEDS: LEVEMIR (INSULIN DETEMIR) 1 UNITS/0.01ML SC SCH ×2 (09:28→21:34)
[2020-08-01] MEDS: CHOLESTYRAMINE 4 GM PWD PKT PO SCH (09:29)
--- NOTE | 2020-08-01 12:57 | ECHO ---
DATE OF PROCEDURE: 07/31/2020 Age: 60 Gender: Male Height: 72 inches Weight: 271 pounds Body surface area: 2.43 m2 PATIENT LOCATION: Inpatient PCU, Room 3215. REFERRING PHYSICIAN: Danyelle Robledo MD. INDICATION: Dyspnea. MEASUREMENTS: 2D Measurements: RV 4.2 cm LV 5.7 cm Septum 1.3 cm Posterior wall 1.3 cm Aortic Root 3.2 cm LA 4.5 cm LVEF 75% Doppler Measurements: AV 1.2 m/s LVOT 1.1 m/s LVOT diameter 2.2 cm MV-E 80, A 65, E/A ratio 1.2 Early mitral deceleration time 290 msec E prime medial 6.1, A prime medial 7.3, E prime lateral 9.1 Average E/E prime ratio 10.5/PCWP - 15 mmHg PV 0.8 m/s Pulmonary artery acceleration time 119 msec RVSP 31 mmHg IVC 1.9 cm COMMENTS: Normal sinus rhythm without any intraventricular conduction disturbance. M-mode and two-dimensional echocardiography was performed with pulse, continuous wave, color flow, and tissue Doppler studies. At least mildly dilated and hypertrophied left ventricle with hyperkinetic wall motion. Mild to moderately dilated left atrium with grade 2 LV diastolic dysfunction with current estimated mean left atrial pressure upper limits of normal. Borderline dilated right ventricle with normal wall motion and current estimated pulmonary arterial pressure upper limits of normal to borderline increased. Normal IVC size and collapse against an elevated central venous pressure. Normal aortic dimensions. Normal appearing and functioning aortic valve. Mild thickening of the mitral annulus, but normal appearing leaflets and leaflet excursion with no posterior systolic buckling. Very mild mitral insufficiency, which is accentuated by occasional isolated PVC. Normal appearing tricuspid valve with mild-moderate insufficiency. No apparent intracardiac mass. Very small circumferential pericardial effusion measuring 2 mm without evidence of any cardiac chamber compression. There was no respiratory variation to pulse Doppler inflow signal to suggest cardiac tamponade. MTDD
--- NOTE | 2020-08-01 16:09 | IPNPDOC ---
Date Seen The patient was seen on 08/01/20. Progress Note SUBJECTIVE: Doing well off O2. BS in 300's, added 40 U SC BID today. Cr baseline 3.2 from nephro records so not MOHAMUD. Eating well. No acute events overnight. OBJECTIVE PEN: obese/ well developed/ NAD HEENT: AT/NC, PERRLA, EOM intact, NC in place NECK: No JVD, Large diameter CVS: RRR/NMRG/ radial pulses intact / BLE edema LUNGS: able to speak full sentences without stopping to take a breath / Diminished breath sounds bilaterally ABDOMEN: Contour (obese) , BS + in 4 quadrant, soft, nontender MSK/EXTREMITIES: range of motion intact in all 4 extremities, +1 pitting edema in lower ext NEURO: CN 2-12 are grossly intact / speech is not dysarthric/ alert and oriented to person place and time/ able to understand and follow all commands PSYCH: mood and affect appropriate LABORATORY DATA: Please see below MICROBIOLOGY: IMAGING: Echocardiogram 07/31/20: pending Doppler LE b/l: neg for DVT Chest xray: Stable cardiomegaly, chronic vascular congestion and increased interstitial markings." MICROBIOLOGY: Please see below. ASSESSMENT: Mr. Kingsley is a 60 yr old M with a history of asthma, unspecified, CHF, CAD, CK D3, AMARJIT, DM, GERD, hypothyroidism, dementia, and impaired hearing who will be admitted for evaluation of dyspnea likely due to fluid overload. PLAN: Uncontrolled IDDM -BS elevated 300's -hbA1c high at 13.2 with average blood sugar over three months being 350-380 -Either patient is noncompliant or difficult to control and not being treated aggressively enough -Increased levemir to 40 U SC BID, watch sugars over next 24 hours. May need to go up further and will need to be discharged on BID dosing for sure. -C/w consistent carb diet, , AC/HS blood sugar checks and ISS, hypoglycemic protocol Acute hypoxic respiratory failure [place] 2/2 to acute CHF exacerbation (type unknown), mild asthma exacerbation- resolved -Currently 99% on RA -Diminished breath sounds b/l, no wheezing, rhonchi -BNP 2416, trops neg -Neg fluid balance since admission -V/Q scan neg for PE -CXR: chronic vascular congestion -Decreased lasix to 20 mg IV daily, d/nigel prednisone -C/w carvediolol, hydralazine, isosorbid dinitrate, albuterol QID, albuterol PRN, IS -Monitor I&O's closely, daily wt, fluid restriction, low salt diet -F/u echocardiogram results Acute unspecified type of CHF with exacerbation -Please see plan above Mild asthma exacerbation -No hx of COPD, scant smoking hx -Diminished breath sounds, no exp wheezing -Stopped prednisone today -Please see plan above Elevated d dimer -V/Q ruled out PE -Lower ext doppler ruled out DVT HTN -restarted losartan and c/w carvedilol, diltiazem, hydralazine, isosorbide dinitrate, IV Lasix CKD Stage 4 -Received records from [facility] office, baseline Cr 3.2 -Today Cr 2.2 -Daily labs Peripheral neuropathy 2/2 to uncontrolled DM -C/w gabapentin Hx of C diff -States to have gotten after use of abx -Followed by his primary care provider, not infectious disease -C/w Vancomycin PO (on a 6 week dosing regimen), adding probiotic -C/w contact precautions CAD -Stable -C/w BB, ASA, clopidogrel, rosuvastatin TONNY -C/w oral iron Elevated CK / Rhabdo ? -Not worsened, improving -Will not give IVF to avoid worsening fluid overload Hypothyroidism -C/w levothyroxine AMARJIT -CPAP Obesity w BMI of 36.7 -complicates care DVT Px -heparin SC Resolved issues: Atypical chest pain poss 2/2 to issues above with incr work of breathing on admission DISPOSITION: PT/OT ordered to evaluate. Plan is discharge home when medically improved. VS, I&O, 24H, Fishbone Vital Signs/I&O Vital Signs Date Time Temp Pulse Resp B/P (MAP) Pulse Ox O2 Delivery O2 Flow Rate FiO2 08/01/20 14:00 98.0 68 18 144/70 (94) 98 Room Air 07/31/20 20:00 2.0 07/30/20 19:50 40 I&O- Last 24 Hours up to 6 AM 08/01/20 06:00 Intake Total 1380 ml Output Total 1900 ml Balance -520 ml Laboratory Data 24H LABS Laboratory Tests 2 07/31/20 17:33: Bedside Glucose (Misc Panel) 480H 07/31/20 20:03: Bedside Glucose (Misc Panel) 507*H 12/17/20 23:50: Bedside Glucose (Misc Panel) 456H 08/01/20 03:19: Bedside Glucose (Misc Panel) 374H 08/01/20 05:43: Nucleated Red Blood Cells % (auto) 0.0, Anion Gap 6L, Glomerular Filtration Rate 32.5L, Calcium Level 8.5, Total Bilirubin 0.3, Aspartate Amino Transf (AST/SGOT) 16, Alanine Aminotransferase (ALT/SGPT) 16, Alkaline Phosphatase 85, Total Protein 5.7L, Albumin 2.5L, Albumin/Globulin Ratio 0.8 08/01/20 06:21: Bedside Glucose (Misc Panel) 341H 08/01/20 07:39: Bedside Glucose (Misc Panel) 388H 08/01/20 11:45: Bedside Glucose (Misc Panel) 435H CBC/BMP Laboratory Tests 08/01/20 05:43 Current Medications Current Medications Medications (Trade) Dose Ordered Sig/Justus Route PRN Reason Start Time Stop Time Status Last Admin Dose Admin Acetaminophen (Tylenol Tab) 650 mg Q4H PRN PO PAIN OR FEVER 07/30/20 22:00 08/01/20 01:02 Al Hydrox/Mg Hydrox/Simethicone (Mylanta) 30 ml DAILY PRN PO DYSPEPSIA 07/30/20 22:00 Albuterol Sulfate (Proventil, Ventolin Hfa) 2 puff QID PRN INH SHORTNESS OF BREATH 07/31/20 05:30 Albuterol Sulfate (Proventil, Ventolin Hfa) 4 puff Q1HP PRN INH SHORTNESS OF BREATH 07/30/20 22:00 07/31/20 05:29 DC Albuterol/ Ipratropium (Duoneb (Ipr 0.5mg/Alb 2.5mg)) 3 ml RQ6H NEB 07/31/20 02:00 07/31/20 05:29 DC 07/31/20 01:59 Aspirin (Ecotrin) 81 mg DAILY PO 07/31/20 09:00 08/01/20 09:25 Carvedilol (COReg) 25 mg BID PO 07/31/20 09:00 08/01/20 09:27 Cholestyramine Resin (Questran) 4 gm DAILY PO 07/31/20 09:00 08/01/20 09:29 Clopidogrel Bisulfate (PLAVix) 75 mg DAILY PO 07/31/20 09:00 08/01/20 09:27 Dextrose (Dextrose 50%) 25 ml ASDIRECTED PRN IV SEE LABEL COMMENTS 07/30/20 22:00 Diltiazem HCl (Cardizem Cd) 180 mg DAILY PO 07/31/20 09:00 08/01/20 09:27 Famotidine (Pepcid) 20 mg DAILY PO 07/31/20 09:00 08/01/20 09:25 Furosemide (LASIX injection) 20 mg DAILY IV 08/01/20 09:00 08/01/20 09:26 Furosemide (LASIX injection) 40 mg DAILY IV 07/31/20 09:00 08/01/20 08:38 DC 07/31/20 09:11 Gabapentin (Neurontin) 200 mg TID PO 07/31/20 09:00 08/01/20 09:25 Glucagon (Glucagon) 1 mg ASDIRECTED PRN SC SEE LABEL COMMENTS 07/30/20 22:00 Glucose (Glucose) 16 GM ASDIRECTED PRN PO SEE LABEL COMMENTS 07/30/20 22:00 Heparin Sodium (Porcine) (Heparin) ASDIRECTED PRN IV SEE LABEL COMMENTS 07/31/20 05:30 07/31/20 13:40 DC Heparin Sodium (Porcine) (Heparin) 5,000 units Q8H SC 07/31/20 06:00 07/31/20 05:33 DC Heparin Sodium (Porcine) (Heparin) 5,000 units Q8H SQ 07/31/20 14:00 08/01/20 14:46 Heparin Sodium (Porcine) 26963 units/IV Miscellaneous Supplies 250 ml @ 0 mls/hr Q0M IV 07/31/20 05:30 07/31/20 13:40 DC 07/31/20 06:28 Home Med (Med Rec Complete!) ASDIRECTED XX 07/31/20 00:00 07/30/20 23:54 DC Hydralazine HCl (Apresoline) 25 mg DAILY PO 07/31/20 09:00 08/01/20 09:27 Hydrocortisone (Proctosol Hc) apply to rectal area BID MS 07/31/20 09:00 Insulin Detemir (Levemir Insulin) 8 units QAM SC 07/31/20 09:00 07/31/20 09:02 DC Insulin Detemir (Levemir Insulin) 35 units QHS NC 07/30/20 21:00 08/01/20 08:41 DC 07/31/20 20:56 Insulin Detemir (Levemir Insulin) 40 units BID SC 08/01/20 09:00 08/01/20 09:28 Insulin Human Lispro (HumaLOG INSULIN) SEE PROTOCOL TABLE AC NC 08/01/20 12:00 08/01/20 12:26 Insulin Human Lispro (HumaLOG INSULIN) SEE PROTOCOL TABLE QHS NC 08/01/20 21:00 Insulin Human Lispro (HumaLOG INSULIN) See Protocol Table Q6H NC 07/31/20 00:00 08/01/20 10:51 DC 08/01/20 06:31 Isosorbide Dinitrate (Isordil) 30 mg DAILY PO 07/31/20 09:00 08/01/20 09:27 Lactobacillus Acidophilus (Bacid) 1 ea BIDWM PO 07/31/20 18:00 08/01/20 09:25 Levothyroxine Sodium (Synthroid) 200 mcg DAILY@0600 PO 07/31/20 06:00 08/01/20 06:29 Losartan Potassium (Cozaar) 100 mg DAILY PO 07/31/20 09:00 07/31/20 07:31 DC Magnesium Hydroxide (Milk Of Magnesia) 30 ml DAILY PRN PO CONSTIPATION 07/30/20 22:00 Methylprednisolone (SOLUmedrol) 125 mg STAT STAT IV 07/30/20 21:47 07/30/20 21:55 DC 07/30/20 23:03 Non-Formulary Medication (Heparin Iv Rate Change Documentation ml/ Hr) ASDIRECTED XX 07/31/20 05:30 07/31/20 13:40 DC Pantoprazole Sodium (Protonix) 40 mg DAILY PO 07/31/20 09:00 08/01/20 09:25 Potassium Chloride (Micro-K Extencaps) 10 meq DAILY PO 07/31/20 09:00 08/01/20 09:27 Prednisone (Deltasone) 40 mg DAILY PO 07/31/20 09:00 08/01/20 08:38 DC 07/31/20 09:12 Rizatriptan Benzoate (Maxalt-Armoured Car Escort) 10 mg BID PRN PO MIGRAINE 07/31/20 05:30 Rosuvastatin Calcium (Crestor) 20 mg QHS PO 07/30/20 21:00 07/31/20 20:56 Vancomycin HCl (First-Vancomycin 50(Firvanq)- 250mg/5ml) 125 mg Q6H PO 07/31/20 06:00 08/01/20 12:35 Allergies Coded Allergies: dulaglutide (Verified Adverse Reaction, Unknown, DIARRHEA, 07/30/20) Sharmila Campbell MD Aug 01, 2020 16:09
[2020-08-01] MEDS: LOSARTAN 50MG TABLET PO SCH (18:00)
[2020-08-01] MEDS ORDERED: HumaLOG INSULIN (NovoLOG) PER UNIT SC SCH (21:00)
[2020-08-01] MEDS: ROSUVASTATIN 10 MG TAB (CRESTOR) PO SCH (21:35)
[2020-08-02] MEDS: VANCOMYCIN ORAL SOL 250MG/5ML ORAL SYRINGE PO SCH ×4 (00:56→17:06)
[2020-08-02 02:00] VITALS: BP 166/100
[2020-08-02 06:10] LABS: HEMATOCRIT 26.7 % (42.0-52.0); HEMOGLOBIN 8.9 g/dl (13.5-17.5); MEAN CORPUSCULAR HEMOGLOBIN 31.4 pg (27.0-33.0); MEAN CORPUSCULAR HGB CONC 33.3 g/dl (32.0-36.5); MEAN CORPUSCULAR VOLUME 94.3 fl (80.0-96.0); PLATELET COUNT, AUTOMATED 244 10^3/uL (150-450); RED BLOOD COUNT 2.83 10^6/uL (4.30-6.10); WHITE BLOOD COUNT 9.6 10^3/uL (4.0-10.0)
[2020-08-02 06:25] VITALS: BP 165/95
[2020-08-02 06:31] LABS: ALBUMIN 2.3 GM/DL (3.2-5.2); BILIRUBIN,TOTAL 0.3 MG/DL (0.2-1.0); CALCIUM LEVEL 7.7 MG/DL (8.5-10.1); GLOMERULAR FILTRATION RATE 36.7 (>56); TOTAL PROTEIN 5.3 GM/DL (6.4-8.2)
[2020-08-02] MEDS: LEVOTHYROXINE 100MCG TABLET (0.1MG) PO SCH (06:35)
[2020-08-02] MEDS: HEPARIN SOD (PORCINE) 5000UNITS/ML 1ML VIAL/SYRINGE SQ SCH ×2 (06:35→13:22)
[2020-08-02] MEDS: FUROSEMIDE 20MG/2ML VIAL (J1940) IV SCH (08:29)
[2020-08-02] MEDS: ASPIRIN 81 MG ENTERIC TAB PO SCH (08:30)
[2020-08-02] MEDS: FAMOTIDINE 20 MG TAB PO SCH (08:30)
[2020-08-02] MEDS: LACTOBACILLUS ACIDOPHILUS CAP (BACID) PO SCH ×2 (08:30→17:06)
[2020-08-02] MEDS: GABAPENTIN 100 MG CAP PO SCH ×2 (08:30→17:06)
[2020-08-02] MEDS: PANTOPRAZOLE 40MG TAB (PROTONIX) PO SCH (08:30)
[2020-08-02] MEDS: CLOPIDOGREL 75 MG TAB PO SCH (08:30)
[2020-08-02 08:31] VITALS: BP 162/84
[2020-08-02] MEDS: LOSARTAN 50MG TABLET PO SCH (08:31)
[2020-08-02] MEDS: POTASSIUM CHLORIDE 10 MEQ SR TABLET PO SCH (08:31)
[2020-08-02] MEDS: **hydrALAZINE HCL** 25 MG TAB PO SCH (08:31)
[2020-08-02] MEDS: CARVedilol 12.5 MG TAB PO SCH (08:32)
[2020-08-02] MEDS: diltiaZEM **CD** 180 MG CAP PO SCH (08:32)
[2020-08-02] MEDS: ISOSORBIDE DIN. (ISORDIL) 30 MG TAB PO SCH (08:32)
[2020-08-02] MEDS: HumaLOG INSULIN (NovoLOG) PER UNIT SC SCH ×3 (08:33→17:05)
[2020-08-02] MEDS: LEVEMIR (INSULIN DETEMIR) 1 UNITS/0.01ML SC SCH (08:33)
[2020-08-02] MEDS: CHOLESTYRAMINE 4 GM PWD PKT PO SCH (08:34)
[2020-08-02] MEDS: ANUSOL HC CREAM 30GM PR SCH (09:00)
[2020-08-02] MEDS ORDERED: LASI20TA3 PO (09:47)
[2020-08-02] MEDS ORDERED: LANTINJ4 SC ×2 (09:47)
[2020-08-02 10:00] VITALS: BP 156/85
[2020-08-02] MEDS ORDERED: LEVEMIR (INSULIN DETEMIR) 1 UNITS/0.01ML SC ONE (10:00)
[2020-08-02 14:00] VITALS: BP 161/78
--- NOTE | 2020-08-02 15:22 | DS.PDOC ---
Discharge Summary General Date of Admission Jul 30, 2020 at 21:47 Date of Discharge 08/02/20 Attending Physician: Sharmila Campbell MD Discharge Summary HISTORY OF PRESENT ILLNESS: This 60 yr old gentleman with PMH below suddenly developed shortness of breath while shopping with his , therefore, she decided to bring him to the hospital for evaluation. Upon arrival, the patient added that he also had chest pain and was noted to have O2 sats that were 88% on room air. Per Dr. Woo the patient's torsemide, had recently been discontinued; in light of this information and the elevated BNP, he ordered Lasix and started the patient on BiPAP for cardiogenic pulmonary edema. At the time of hospitalist evaluation, the patient reported that his shortness of breath that improved with BIPAP, and added that he was currently on medications for C. difficile. He had recently completed a course of antibiotics for pneumonia. He was admitted for acute respiratory failure likely multifactorial 2/2 to asthma exacerbation and CHF exacerbation. 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 Baseline Cr 3.2. Lasix continued. He was gradually weaned off O2. V/Q scan and LE doppler neg. Blood sugar was very uncontrolled and was started on levemir BID which only controlled minimally. He did well with PT and was cleared for home. HbA1c was found to 13.2, so normally blood sugars are running 350-380 at home at any given time. Due to him being much improved and off O2, patient was discharged home with levemir 35 U SC AM, levemir 45 units HS plus home victoza for DM treatment. He is recommended to follow up with primary care provider and windows and doors installer after discharge. We kindly ask to have primary care provider follow up on your echocardiogram, as results were not back before discharge. We recommend checking blood sugars four times daily after discharge to ensure blood sugars do not drop <80. If he has increased anxiety, tremors, sweating, check blood sugar. If low with these symptoms, it was explained to him that he will likely need sugar and need adjustment of your insulins. He was in agreement and said he will bring discharge paperwork to f/u appointment. At discharge, patient denied chest pain, n/v/d, fevers, chills. PAST MEDICAL/ SURGICAL HISTORY: Asthma Unspecified type of CHF CAD with placement of 3 stents CKD 3 AMARJIT on CPAP 12 cm water Diabetes GERD Hypothyroidism Dementia Impaired hearing. Chronic knee pain SOCIAL HISTORY: Is a former smoker ALLERGIES: Please see below. DISCHARGE MEDICATIONS: Please see below. PHYSICAL EXAM: VS: Please see below GEN: obese/ well developed/ NAD HEENT: AT/NC, PERRLA, EOM intact, NC in place NECK: No JVD, Large diameter CVS: RRR/NMRG/ radial pulses intact / BLE edema LUNGS: able to speak full sentences without stopping to take a breath / Diminished breath sounds bilaterally ABDOMEN: obese abd, Contour (obese) , BS + in 4 quadrant, soft, nontender MSK/EXTREMITIES: range of motion intact in all 4 extremities, +1 pitting edema in lower ext NEURO: CN 2-12 are grossly intact / speech is not dysarthric/ alert and oriented to person place and time/ able to understand and follow all commands PSYCH: mood and affect appropriate LABORATORY DATA: Please see below IMAGING: 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 ASSESSMENT: Mr. Kingsley is a 60 yr old M with a history of asthma, unspecified, CHF, CAD, CK D3, AMARJIT, DM, GERD, hypothyroidism, dementia, and impaired hearing who will be admitted for acute hypoxic respiratory failure [facility] 09/16 to acute CHF exacerbation (type unknown), mild asthma exacerbation, uncontrolled IDDM. PLAN: Uncontrolled IDDM -BS elevated 300's even with addition of day levemir of 40 U SC. -hbA1c high at 13.2 with average blood sugar over three months being 350-380 -Either patient is noncompliant or difficult to control and not being treated aggressively enough -Recommend d/c with levemir 35 U SC QAM, levemir incr to 45 U SC QPM plus victoza home med. -He is strongly advised to check blood sugars four times AC/HS and to record for PCP to review. If s/s of hypoglycemia he is to report to PCP or ER and treat with sugared food/candy, drink immediately. -Lifestyle modifications were also discussed with him, c/w consistent carb diet. -PCP may consider endocrinology referral Acute hypoxic respiratory failure [facility] 2/2 to acute CHF exacerbation (type unknown), mild asthma exacerbation- resolved -Currently 99% on RA -Diminished breath sounds b/l, no wheezing, rhonchi -BNP 2416, trops neg -Neg fluid balance since admission -V/Q scan neg for PE -CXR: chronic vascular congestion -C/w carvediolol, hydralazine, isosorbid dinitrate, lasix on d/c -Recommend low salt diet, cardiac diet -ASking PCP to please f/u echocardiogram results as these were not available on d/c Acute unspecified type of CHF with exacerbation -Please see plan above Mild asthma exacerbation -No hx of COPD, scant smoking hx -Diminished breath sounds, no exp wheezing -Please see plan above Elevated d dimer -V/Q ruled out PE -Lower ext doppler ruled out DVT HTN -C/w losartan, carvedilol, diltiazem, hydralazine, isosorbide dinitrate, lasix CKD Stage 4 -Received records from [employer] office, baseline Cr 3.2 -Today Cr 2.0, despite diuretics -F/u with o/p windows and doors installer Peripheral neuropathy 2/2 to uncontrolled DM -C/w gabapentin Hx of C diff -States to have gotten after use of abx -Followed by his primary care provider -C/w Vancomycin PO (on a 6 week dosing regimen), probiotic CAD -Stable -C/w BB, ASA, clopidogrel, rosuvastatin TONNY -C/w oral iron Elevated CK / Rhabdo ? -Not worsened, improving Hypothyroidism -C/w levothyroxine AMARJIT -CPAP Obesity w BMI of 36.7 -complicates care Resolved issues: Atypical chest pain poss 2/2 to issues above with incr work of breathing on admission DISPOSITION: Discharge home today and to make f/u with PCP, windows and doors installer. Asking PCP to please f/u on echocardiogram after discharge. TIME SPENT ON DISCHARGE: Greater than 30 minutes. Vital Signs/I&Os Vital Signs Date Time Temp Pulse Resp B/P (MAP) Pulse Ox O2 Delivery O2 Flow Rate FiO2 08/02/20 10:00 96.5 68 17 156/85 (108) 100 Room Air 07/31/20 20:00 2.0 07/30/20 19:50 40 I&O- Last 24 Hours up to 6 AM 08/02/20 06:00 Intake Total 2320 ml Output Total 0 ml Balance 2320 ml Laboratory Data Labs 24H Laboratory Tests 2 08/01/20 17:16: Bedside Glucose (Misc Panel) 401H 08/01/20 21:17: Bedside Glucose (Misc Panel) 355H 08/02/20 05:55: Nucleated Red Blood Cells % (auto) 0.0, Anion Gap 8, Glomerular Filtration Rate 36.7L, Calcium Level 7.7L, Total Bilirubin 0.3, Aspartate Amino Transf (AST/SGOT) 16, Alanine Aminotransferase (ALT/SGPT) 19, Alkaline Phosphatase 76, Total Protein 5.3L, Albumin 2.3L, Albumin/Globulin Ratio 0.8 08/02/20 06:26: Bedside Glucose (Misc Panel) 278H 08/02/20 11:55: Bedside Glucose (Misc Panel) 306H CBC/BMP Laboratory Tests 08/02/20 05:55 FSBS Laboratory Tests Test 08/01/20 17:16 08/01/20 21:17 08/02/20 06:26 08/02/20 11:55 Range/Units Bedside Glucose (Misc Panel) 401 355 278 306 70-105 MG/DL Discharge Medications Scheduled Aspirin (Aspirin EC) 81 Mg Tablet.dr, 81 MG PO DAILY, (Reported) Carvedilol (Carvedilol) 25 Mg Tablet, 25 MG PO BID, (Reported) Cholestyramine/Aspartame (Cholestyramine Light Packet) 4 Gm Powd.pack, 4 GM PO DAILY, (Reported) Clopidogrel Bisulfate (Clopidogrel) 75 Mg Tablet, 75 MG PO DAILY, (Reported) Famotidine (Famotidine) 20 Mg Tablet, 20 MG PO DAILY, (Reported) Ferrous Gluconate (Iron) 236 Mg Tablet, 2 TAB PO DAILY, (Reported) Fluticasone Propionate (Fluticasone Propionate) 15.8 Ml Dexter.susp, 2 SPRAYS NA DAILY, (Reported) Furosemide (Lasix) 20 Mg Tablet, 20 MG PO DAILY Gabapentin (Gabapentin) 100 Mg Capsule, 200 MG PO TID, (Reported) Hydralazine HCl (Hydralazine HCl) 25 Mg Tablet, 25 MG PO DAILY, (Reported) Hydrocortisone (Anusol-Hc) 2.5% Crm.pe.jana, 1 DOSE NM BID, (Reported) Insulin Glargine,Hum.rec.anlog (Lantus Solostar) 100 Unit/1 Ml Insuln.pen, 45 UNITS SC QPM Insulin Glargine,Hum.rec.anlog (Lantus Solostar) 100 Unit/1 Ml Insuln.pen, 35 UNIT SC QAM Isosorbide Dinitrate (Isosorbide Dinitrate) 30 Mg Tablet, 30 MG PO DAILY, (Rep orted) Lactobacillus Rhamnosus GG (Tapastreet) 1 Each Cap.sprink, 1 CAP PO DAILY, (Reported) Levothyroxine Sodium (Synthroid) 200 Mcg Tablet, 200 MCG PO DAILY, (Reported) Liraglutide (Victoza 2-Fred) 0.6 Mg/0.1 Ml Pen.injctr, 1.8 MG SC DAILY, (Reported) Losartan Potassium (Losartan Potassium) 100 Mg Tablet, 100 MG PO DAILY, (Reported) Potassium Chloride (Potassium Chloride) 10 Meq Tab.er.prt, 10 MEQ PO DAILY, (Reported) Rosuvastatin Calcium (Crestor) 20 Mg Tablet, 20 MG PO QHS, (Reported) Vancomycin Hcl (Vancomycin HCl) 125 Mg Capsule, 125 MG PO Q6H, (Reported) dilTIAZem HCl (Diltiazem 24Hr Cd) 180 Mg Cap.er.24h, 180 MG PO DAILY, (Reported) Scheduled PRN Albuterol Sulfate (Proair Hfa) 8.5 Gm Hfa.aer.ad, 2 PUFF INH QID PRN for SHORTNESS OF BREATH, (Reported) Cetirizine HCl (Cetirizine HCl) 10 Mg Tablet, 10 MG PO DAILY PRN for ALLERGY SYMPTOMS, (Reported) Rizatriptan Benzoate (Maxalt Hairspring Vibrator) 10 Mg Tab.rapdis, 10 MG PO BID PRN for MIGRAINE, (Reported) Allergies Coded Allergies: dulaglutide (Verified Adverse Reaction, Unknown, DIARRHEA, 07/30/20) Sharmila Campbell MD Aug 02, 2020 15:22
[2020-08-02] MEDS ORDERED: LEVEMIR (INSULIN DETEMIR) 1 UNITS/0.01ML SC SCH (21:00)
[2020-08-03] MEDS ORDERED: LEVEMIR (INSULIN DETEMIR) 1 UNITS/0.01ML SC SCH (09:00)
== END 2020-08-02 19:00 | disposition home or self-care (01) | DRG 189 ==
LOC: M ED 19:16 → M ED INP 21:47 → ENRESERV 07-31 02:55 → M PCU 07-31 04:42 → M MSPAV 08-01 04:01
PROVIDERS: ADMIT Internal Medicine; ATTEND Internal Medicine
DX: J96.01 Acute respiratory failure with hypoxia (principal); I13.0 Hypertensive heart and chronic kidney disease with heart failure and stage 1 through stage 4 chronic kidney disease, or unspecified chronic kidney disease; J44.1 Chronic obstructive pulmonary disease with (acute) exacerbation; J45.901 Unspecified asthma with (acute) exacerbation; N18.4 Chronic kidney disease, stage 4 (severe); A04.72 Enterocolitis due to Clostridium difficile, not specified as recurrent; I50.9 Heart failure, unspecified; I25.10 Atherosclerotic heart disease of native coronary artery without angina pectoris; G47.33 Obstructive sleep apnea (adult) (pediatric); E11.42 Type 2 diabetes mellitus with diabetic polyneuropathy; K21.9 Gastro-esophageal reflux disease without esophagitis; E11.65 Type 2 diabetes mellitus with hyperglycemia; E66.9 Obesity, unspecified; H91.93 Unspecified hearing loss, bilateral; F03.90 Unspecified dementia, unspecified severity, without behavioral disturbance, psychotic disturbance, mood disturbance, and anxiety; Z95.5 Presence of coronary angioplasty implant and graft; E11.22 Type 2 diabetes mellitus with diabetic chronic kidney disease; Z87.891 Personal history of nicotine dependence; Z68.36 Body mass index [BMI] 36.0-36.9, adult; D64.9 Anemia, unspecified; Z79.4 Long term (current) use of insulin; Z79.82 Long term (current) use of aspirin; Z79.02 Long term (current) use of antithrombotics/antiplatelets; Z79.899 Other long term (current) drug therapy; Z88.8 Allergy status to other drugs, medicaments and biological substances; Z20.828 Contact with and (suspected) exposure to other viral communicable diseases

== ENCOUNTER → 2021-06-12 | Outpatient (REF) | payer BC ==
[~2021-06-12] MED LIST changes: +ANUS2.5C2 PR; +ASPI-161 PO; +CETI10TA PO; +CHOL4POW2 PO; +CRES20TA2 PO; +CULT10CA; +CULT10CA PO; +D31000CA4; +DILT180C70; +DILT180C70 PO; +FAMO1TAB11; +FAMO20TA PO; +FLUT15.820; +HYDR-3910 PO; +INSU100I9; +IRON27TA2 PO; +ISOS1TAB13; +ISOS30TAB PO; -KLOR10TA76 PO; +LASI20TA3 PO; +LEVO200T4; +LEVO2TA PO; +MAXA10TA15 PO; +POTA-136 PO; +POTA10TA67 PO; +PROAAER10 INH; +ROSU20TA5; +VANC125C3; +VANC125C3 PO; +VICT18IN SC; +VICT18IN2
== END ==
LOC: M SMT 17:42
PROVIDERS: ATTEND Urology
DX: N49.2 Inflammatory disorders of scrotum (principal)